=== PATIENT | female | born 1965 | race Hispanic/Latino ===

== ENCOUNTER 2018-04-10 13:46 | Emergency (ER) | payer SELFPAY ==
[~2018-04-10] VITALS: Ht 167.6 cm; Wt 81.6 kg
--- NOTE | 2018-04-10 15:42 | RADIOLOGY REPORT ---
EXAMINATION: XR FOOT, LEFT XR ANKLE, LEFT CLINICAL INFORMATION: Pain after fall COMPARISON: None TECHNIQUE: Left ankle, 3 views Left foot, 3 views FINDINGS: Left ankle: Alignment is normal. The talar dome is well-positioned within the intact ankle mortise. Ankle joint space and syndesmotic space are normal. No acute fracture, subluxation or ankle joint effusion. Left foot: Alignment is normal. Small enthesophytes of the posterior and plantar surfaces of the calcaneus. Minimal osteoarthrosis of the great toe MTP joint. Acute, nondisplaced fracture of the distal metaphysis of the 4th metatarsal. Otherwise, metatarsals are normal. The phalanges are intact. IMPRESSION: - No acute osseous injury at the left ankle. - Acute, nondisplaced fracture of the neck of the 4th metatarsal.
--- NOTE | 2018-04-10 16:29 | ED ANKLE/FOOT INJURY COMPLAINT ---
History of Present Illness General Chief Complaint: Foot or Ankle Injury Stated Complaint: LT FOOT PAIN Source: patient Exam Limitations: no limitations Vital Signs & Intake/Output Vital Signs & Intake/Output ED Intake and Output 04/11 0000 04/10 1200 Intake Total Output Total Balance Patient 180 lb Weight Weight Estimated Measurement Method Allergies Coded Allergies: No Known Allergies (04/10/18) Reconcile Medications Hydrocodone/Acetaminophen ([place] 5-325 Tablet) 5 MG-325 MG TABLET 1-2 TAB PO Q4-6 PRN PRN pain Ibuprofen 800 MG TABLET 1 TAB PO TID PRN pain Triage Note: PT TO ED C/O LEFT FOOT/ANKLE PAIN SINCE LAST NIGHT. STATES SHE TWISTED IT, HAS NOT TAKEN ANY OTC MEDS. MEDICATED WITH MOTRIN IN TRIAGE. Triage Nurses Notes Reviewed? yes Occurred: just prior to arrival Duration: day(s): (1), constant, continues in ED, getting worse Timing: single episode today Severity: mild, moderate Severity Numbers: 6 Pain/Injury Location: Left: Foot. Method of Injury: twisted LMP (ages 10-50): unknown : No HPI: 52-year-old female with no medical history presents for evaluation of left foot pain. Patient reports symptoms started last night after she twisted her foot. There is no history of loss of consciousness no ankle pain. The pain is located the dorsum of the foot near the fourth and fifth metatarsals. No numbness or tingling. She is able to walk but is painful. Past History Travel History Traveled to [place] past 21 day No Medical History Any Pertinent Medical History? see below for history Surgical History Surgical History: non-contributory Psychosocial History What is your primary language Lebanese Tobacco Use: Current Daily Use Daily Tobacco Use Amount/Type: => 5 Cigarettes daily ETOH Use: denies use Illicit Drug Use: denies illicit drug use Family History Hx Contributory? No Review of Systems Review of Systems Constitutional: Reports: no symptoms. EENTM: Reports: no symptoms. Respiratory: Reports: no symptoms. Cardiovascular: Reports: no symptoms. GI: Reports: no symptoms. Genitourinary: Reports: no symptoms. Musculoskeletal: Reports: joint pain, joint swelling. Skin: Reports: no symptoms. Neurological/Psychological: Reports: no symptoms. Hematologic/Endocrine: Reports: no symptoms. Immunologic/Allergic: Reports: no symptoms. All Other Systems: Reviewed and Negative Physical Exam Physical Exam General Appearance: well developed/nourished, no apparent distress, alert, awake Head: atraumatic, normal appearance Eyes: Bilateral: normal appearance, PERRL, EOMI. Ears, Nose, Throat: hearing grossly normal Neck: normal inspection, supple, full range of motion Cardiovascular/Respiratory: no respiratory distress Back: normal inspection, normal range of motion, no vertebral tenderness Leg/Knee/Thigh Left: normal range of motion, normal inspection Leg/Knee/Thigh Right: normal range of motion, normal inspection Ankle Left: normal inspection, normal range of motion Ankle Right: normal inspection, normal range of motion Foot Left: normal inspection, limited range of motion, soft tissue tenderness, THERE IS TENDERNESS PALPATION OVER THE FOURTH AND FIFTH METATARSALS. nO BRUISING SWELLING OR ABRASIONS RANGE OF MOTION IS LIMITED DUE TO PAIN NEUROVASCULAR SUPPLY INTACT Neuro/Vascular: normal motor function, normal sensation Tendon: normal tendon function Psychiatric: awake, alert, oriented x 3 Skin: intact, normal color, warm/dry Progress Differential Diagnosis: cellulitis, septic arthritis, fracture, dislocation, sprain, contusion Plan of Care: Orders Procedure Date/time Status Durable Medical Equipment 04/10 1639 Active Patient is here for evaluation of pain in her left foot after twisting it yesterday. Neurovascular supply is intact. X-rays show a minimally displaced fracture of the left fourth metatarsal neck. No other injuries. Patient was placed into a walking boot and given crutches rest ice elevation compression Tylenol IBUPROFEN for pain follow-up with podiatry discussed return precautions patient agrees the plan. [place]urn for severe pain only Diagnostic Imaging: Viewed by Me: Radiology Read. Discussed w/RAD: Radiology Read. Radiology Impression: PATIENT: HINA STONE PRESENT AGE: 52 PATIENT ACCOUNT NO: [id number] : 63 LOCATION: [facility] ORDERING PHYSICIAN: Juan ALAMO SERVICE DATE: 04/10/18 EXAM TYPE: RAD - XRY-ANKLE 3 OR MORE VIEWS L; XRY-FOOT COMPLETE, LEFT EXAMINATION: XR FOOT, LEFT XR ANKLE, LEFT CLINICAL INFORMATION: Pain after fall COMPARISON: None TECHNIQUE: Left ankle, 3 views Left foot, 3 views FINDINGS: Left ankle: Alignment is normal. The talar dome is well-positioned within the intact ankle mortise. Ankle joint space and syndesmotic space are normal. No acute fracture, subluxation or ankle joint effusion. Left foot: Alignment is normal. Small enthesophytes of the posterior and plantar surfaces of the calcaneus. Minimal osteoarthrosis of the great toe MTP joint. Acute, nondisplaced fracture of the distal metaphysis of the 4th metatarsal. Otherwise, metatarsals are normal. The phalanges are intact. IMPRESSION: - No acute osseous injury at the left ankle. - Acute, nondisplaced fracture of the neck of the 4th metatarsal. DICTATED BY: Sanford Neely MD DATE/TIME DICTATED:04/10/181534 PRE FABRICATOR:PARISA DATE/TIME TRANSCRIBED:04/10/181534 CONFIDENTIAL, DO NOT COPY WITHOUT APPROPRIATE AUTHORIZATION. <Electronically signed in Other Vendor System> SIGNED BY: Sanford Neely MD 04/10/18 1542 Departure Departure Disposition: HOME OR SELF CARE Condition: Stable Clinical Impression Primary Impression: Foot fracture, left Qualifiers: Encounter type: initial encounter Fracture type: closed Qualified Code: S92.902A - Unspecified fracture of left foot, initial encounter for closed fracture Referrals: Donny Urbina DPM Patient Has No Primary Care Dr (PCP/Family) Additional Instructions: Rest, keep your foot elevated, apply ice 15-20 minutes every few hours. Wear a boot walker with crutches. Use ibuprofen 800 mg every 8 hours as needed for pain. [place] for severe pain only this may cause drowsiness. Make a follow-up with Dr. Urbina speck dyer as soon as possible monitor your symptoms return with any concerns Departure Forms: Customer Survey General Discharge Information Prescriptions: Current Visit Scripts Hydrocodone/Acetaminophen ([place] 5-325 Tablet) 1-2 TAB PO Q4-6 PRN PRN pain #10 TAB Ibuprofen 1 TAB PO TID PRN pain #30 TAB
[2018-04-10] MEDS ORDERED: NORCO 5-325 TA1 EACH PO (16:41)
[2018-04-10] MEDS ORDERED: IBUPROFEN800 M1 PO (16:41)
[2018-04-10 16:56] VITALS: BP 120/82
== END 2018-04-10 16:57 ==
LOC: ERH 13:46
DX: S92.342A Displaced fracture of fourth metatarsal bone, left foot, initial encounter for closed fracture (principal); X58.XXXA Exposure to other specified factors, initial encounter; Y92.9 Unspecified place or not applicable; Y93.9 Activity, unspecified
CPT/HCPCS: 73610-LT; 73630-LT